=== PATIENT | male | born 1985 | race Caucasian/White ===

== ENCOUNTER 2016-03-02 19:01 | Emergency (ER) | payer OTHER ==
[~2016-03-02] VITALS: Ht 182.9 cm; Wt 117.9 kg
[~2016-03-02 19:01] MED LIST: TYLENOL #31 TAB PO; ZOFRAN ODT4 MG SL
[2016-03-02 19:04] VITALS: BP 140/83
--- NOTE | 2016-03-02 19:24 | ED INFLUENZA/URI COMPLAINT ---
History of Present Illness General Chief Complaint: General Adult Stated Complaint: COUGHING X2 WEEKS Source: patient, old records Exam Limitations: no limitations Vital Signs & Intake/Output Vital Signs & Intake/Output Vital Signs Date Time Temp Pulse Resp B/P Pulse O2 O2 Flow FiO2 Ox Delivery Rate 03/02 1904 98.0 104 16 140/83 99 Allergies Coded Allergies: NO KNOWN ALLERGIES (10/27/11) Reconcile Medications Ascorbic Acid (Vitamin C) (Unknown Strength) LOZENGE (Unknown Dose) PO DAILY SUPPLEMENT (Reported) Azithromycin (Zithromax) 250 MG TABLET 1 DP PO AD uri 2 the first day followed by 1 for days 2-5 Diphenhydramine HCl (Benadryl) 25 MG CAPSULE 2 CAP PO QPM COLD SYMPTOMS ( Reported) Mometasone Furoate (Nasonex) 50 MCG SPRAY.PUMP 2 SPRAY NASB DAILY uri Triage Note: PT STATES HE HAS BEEN SICK FOR 2 WEEKS AND HAS BEEN COUGHING WITH DARK YELLOW SPUTUM. PT DENIES HAVING FEVERS. Triage Nurses Notes Reviewed? yes Onset: Gradual Duration: week(s): (2), constant Timing: recent history Severity: mild, moderate Severity Numbers: 5 Prior Episodes/Possible Cause: occassional episodes No Modifying Factors: none Associated Symptoms: cough, nasal congestion, nasal drainage HPI: 30 Year old male with no past medical history presents complaining of a two-week history of postnasal drip rhinorrhea congestion associated with a productive cough brown sputum. He is been using [id number] medications without improvement. He denies tobacco use no shortness of breath or chest pain no abdominal pain nausea vomiting or diarrhea. There are no modifying factors or associated symptoms. No sore throat no sick contacts or recent travel (NOHEMI ZUNIGA) Past History Travel History Traveled to [place] past 21 day No Medical History Any Pertinent Medical History? none Surgical History Surgical History: none Psychosocial History What is your primary language [place] Tobacco Use: Never used ETOH Use: occasional use Illicit Drug Use: denies illicit drug use Family History Hx Contributory? No (NOHEMI ZUNIGA) Review of Systems Review of Systems Constitutional: Reports: see HPI. All Other Systems: Reviewed and Negative Comments Review of systems: See HPI, All other systems negative. Constitutional, no chills no fever, no malaise HEENT: No visual changes no sore throat no congestion Cardiovascular: No chest pain , no palpitation Skin, No rashes, no change in skin Respiratory: No dyspnea no cough no sputum GI: No nausea no vomiting, no diarrhea, no bloating/constipation : No dysuria Muscle skeletal: No joint pain,no back pain, no neck pain, Neurologic: No numbness no headache Psych: No stress . Heme/endocrine: No bruising no bleeding Immunology: No lymphadenopathy, (NOHEMI ZUNIGA) Physical Exam Physical Exam General Appearance: well developed/nourished, no apparent distress, alert, awake Ears, Nose, Throat: normal ENT inspection Comments: Well-developed well-nourished patient in no apparent distress. Head/Face: Atraumatic, no maxillary/frontal sinus tenderness, no facial swelling Eyes: PERRL, EOMI, no conjunctival injection. No nystagmus Ear:External auditory canal and Tympanic membranes clear, no erythema, no FB. Nose: atraumatic.Normal inspection: No bleeding, no septal hematoma Throat: Moist mucous membranes.Pharynx normal. No pharyngeal erythema/exudate seen. No stridor/drooling or assymetry. No swelling or edema. Neck: Supple, no lymphadenopathy, FROM Back: FROM, Nontender Cardiovascular: Regular rate and rhythms no murmurs rubs or gallops, Respiratory: Chest nontender.There were no bony deformities, no asymmetry. No respiratory distress. Patient speaking in full complete sentences. Breath sounds clear to auscultation bilaterally: NO W/R/R Extremities: full range of motion Neuro: Alert and oriented x3 Skin: Warm & dry;No appreciable rash on exposed skin Psych: Mood affect normal, normal memory normal judgment. Core Measures Severe Sepsis Present: No Septic Shock Present: No (NOHEMI ZUNIGA) Progress Differential Diagnosis: influenza, pneumonia, pharyngitis, sinusitis, bronchitis Plan of Care: Patient clinically appears well speaking in full complete sentences. Lungs are clear to auscultation I discussed with him need for supportive care prescription for Z-Gerardo and Nasonex were called and advised return anytime sooner with any concerns he feels comfortable plan cleared for discharge Initial ED EKG: none (NOHEMI ZUNIGA) Departure Departure Time of Disposition: 1940 Disposition: HOME OR SELF CARE Condition: Stable Clinical Impression Primary Impression: URI (upper respiratory infection) Referrals: LAURA CHAPA,GUS E. (PCP/Family) Additional Instructions: nasonex nasal spray and zpak as directed. follow up with your pmd this week, continue using over the counter medications. return with any concerns. these prescriptions were sent to your [facility] pharmacy Departure Forms: Customer Survey General Discharge Information Prescriptions: Current Visit Scripts Azithromycin (Zithromax) 1 DP PO AD #6 TAB 2 the first day followed by 1 for days 2-5 Mometasone Furoate (Nasonex) 2 SPRAY NASB DAILY #1 INHAL (NOHEMI ZUNIGA) PA/PROFILE SAW OPERATOR Co-Sign Statement Statement: ED Attending supervision documentation- [] I saw and evaluated the patient. I have also reviewed all the pertinent lab results and diagnostic results. I agree with the findings and the plan of care as documented in the PA's/PROFILE SAW OPERATOR's documentation. [x] I have reviewed the ED Record and agree with the PA's/PROFILE SAW OPERATOR's documentation. [] Additions or exceptions (if any) to the PAs/PROFILE SAW OPERATOR's note and plan are summarized below: [] (FIDELIA CHAPA,ANTHONY Addison)
[2016-03-02] MEDS ORDERED: VITAMIN C60 MG PO (19:32)
[2016-03-02] MEDS ORDERED: BENADRYL25 MG PO (19:33)
[2016-03-02] MEDS ORDERED: NASONEX17 GM NASB (19:42)
[2016-03-02] MEDS ORDERED: ZITHROMAX250 M2 PO (19:42)
== END 2016-03-02 20:00 ==
LOC: ERH 19:01
DX: J06.9 Acute upper respiratory infection, unspecified (principal)